=== PATIENT | female | born 2000 | race Caucasian/White ===

== ENCOUNTER 2025-02-24 06:06 | Inpatient (IN) ==
[2025-02-24] MEDS: PITOCIN ONE ×2 (06:10→16:23)
[2025-02-24] MEDS: D5 1/2 NS 1,000 ML 1,000 ML IV SCH ×2 (06:40→20:32)
[2025-02-24 06:56] LABS: INR 1.07 (0.8-1.3)
--- NOTE | 2025-02-24 07:03 | DR.OB ---
OB QUICK NOTE Assessment/Plan (1) induced hypertension: Assessment/Plan: L&D 02/24/25 at 6:50am S-No complaint. O-Afebrile,VSS B/P=160's/100's NUU=712 with good LTV, +accel, no decel. CTX=mild uterine irritability CVX=2cm/50%/-1/VTX AROM with light meconium. IUPC and FSE placed. A-IUP at 38 5/7 weeks for induction PIH P-Begin pitocin induction Amnio-infusion F/U preeclamptic labs Supplement potassium and magnesium as needed.
[2025-02-24] MEDS: NS 1,000 ML IV 1,000 ML IV SCH ×2 (07:15→15:37)
[2025-02-24] MEDS: OXYTOCIN 20 UNIT/1,000 ML-NS 20 UNIT/1,000 ML PLAST..BAG IV PRN (07:15)
[2025-02-24 07:22] LABS: LACTATE DEHYDROGENASE 275.0 Units/L (81-234)
[2025-02-24] MEDS ORDERED: CONSULT PHARMACY - POTASSIUM & MAGNESIUM XX SCH (09:00)
[2025-02-24] MEDS ORDERED: NS + KCL 20 MEQ/L 1,000 ML with MAGNESIUM SULFATE 50% INJ VIAL 1 G IV SCH (09:00)
[2025-02-24] MEDS: NORMODYNE INJ 20 MG VIAL ONE ×3 (09:38→16:50)
[2025-02-24] MEDS: NS 500 ML IV 500 ML IV ONE (09:40)
[2025-02-24] MEDS: MAGNESIUM SULFATE 40 GRAMS IV 40 G/1,000 ML BAG IV ONE (09:40)
[2025-02-24] MEDS: NUBAIN INJ 10 MG AMP IVP PRN (09:50)
[2025-02-24] MEDS ORDERED: NUBAIN INJ 10 MG AMP ONE ×3 (09:51→15:09)
[2025-02-24] MEDS: NORMODYNE INJ 100 MG VIAL IVP ONE (10:54)
[2025-02-24] MEDS: D5 1/2 NS 1,000 ML 1,000 ML IV ONE (10:56)
--- NOTE | 2025-02-24 11:56 | DR.OB ---
OB QUICK NOTE Assessment/Plan (1) induced hypertension: Assessment/Plan: L&D 02/24/25 at 11:35am Pitocin=18mu/min. MgSO4 at 2gm/hr. S-No complaint except CTX. Preeclamptic labs stable, but worsening B/P requiring IV Labetalol. Declines epidural at this time. O-Afebrile, VSS B/P earlier 174/111, now 140-160/90-100 LWB=561 with good LTV, +accel, no decel, occasional mild variable CTX=q 1 1/2 to 2 min., about 45-65mmHg CVX=4-5cm/80%/-1/VTX A-IUP at 39 5/7 weeks for induction Preeclampsia P-Continue pitocin induction Continue MgSO4 2gm/hr. Place Gilman catheter to monitor urine output. F/U serial preeclamptic labs and Mg levels Anticipate
[2025-02-24] MEDS: LR 1,000 ML IV 1,000 ML IV ONE ×3 (13:45→17:11)
[2025-02-24] MEDS: XYLOCAINE 1 % (PLAIN) ONE (14:45)
[2025-02-24] MEDS: FENTANYL VIAL INJ 100 mcg ONE ×2 (14:45→15:59)
[2025-02-24] MEDS: NAROPIN EPIDURAL 0.2% 100 ML ONE (14:51)
[2025-02-24] MEDS: NS 100 ML IV 100 ML ONE (15:48)
[2025-02-24] MEDS: OFIRMEV IV 1000 MG VIAL 1,000 MG/100 ML VIAL IV ONE (15:57)
[2025-02-24] MEDS: AMIDATE INJ 40 MG VIAL ONE (15:57)
[2025-02-24] MEDS: QUELICIN (OR ANECTINE) ONE (15:58)
[2025-02-24] MEDS: DECADRON INJ ONE (15:58)
[2025-02-24] MEDS: ZOFRAN INJ 4 MG VIAL ONE ×2 (15:58→17:58)
[2025-02-24] MEDS: ZEMURON 100 MG VIAL ONE (15:58)
[2025-02-24] MEDS: PEPCID 20 MG VIAL ONE (16:03)
[2025-02-24] MEDS: ANCEF VIAL 1 GRAM ONE (16:03)
[2025-02-24] MEDS: BICITRA 30 ML PO ONE (16:04)
[2025-02-24] MEDS: PEPCID 20 MG VIAL IVP PRN (16:20)
[2025-02-24] MEDS: DANTRIUM IV PRN (16:20)
[2025-02-24] MEDS: EPHEDRINE SULFATE INJ ONE (16:21)
[2025-02-24] MEDS: LR 1,000 ML IV 1,500 ML IV PRN (16:30)
[2025-02-24] MEDS ORDERED: MAGNESIUM SULFATE 50% INJ VIAL IVP PRN (16:33)
[2025-02-24] MEDS: ANCEF VIAL 1 GRAM IV PRN (16:33)
[2025-02-24] MEDS ORDERED: ULTANE GAS IN ONE (16:33)
[2025-02-24] MEDS ORDERED: KETAMINE HCL ONE (16:33)
[2025-02-24] MEDS ORDERED: XYLOCAINE 2 % (PLAIN) ONE (16:33)
[2025-02-24 16:36] LABS: INR 1.10 (0.8-1.3)
[2025-02-24 16:42] LABS: LACTATE DEHYDROGENASE 281.0 Units/L (81-234)
[2025-02-24] MEDS: AMIDATE INJ 40 MG VIAL IVP PRN (16:42)
[2025-02-24] MEDS: DIPRIVAN VIAL 20 ML IVP PRN (16:42)
[2025-02-24] MEDS: XYLOCAINE 2 % (PLAIN) IJ PRN (16:42)
[2025-02-24] MEDS: KETAMINE HCL IV PRN (16:42)
[2025-02-24] MEDS: QUELICIN (OR ANECTINE) IVP PRN (16:42)
[2025-02-24] MEDS: NORMODYNE INJ 20 MG VIAL IVP PRN (16:48)
[2025-02-24] MEDS: ZEMURON 100 MG VIAL IVP PRN (16:49)
[2025-02-24] MEDS: DECADRON INJ IVP PRN (16:49)
[2025-02-24] MEDS: OFIRMEV IV 1000 MG VIAL 1,000 MG/100 ML VIAL IV PRN (16:50)
[2025-02-24] MEDS: PRECEDEX INJ VIAL IVP PRN (16:52)
[2025-02-24] MEDS: FENTANYL VIAL INJ 100 mcg IVP PRN (16:53)
[2025-02-24] MEDS: TORADOL 30 MG VIAL ONE (17:02)
[2025-02-24] MEDS: TORADOL 30 MG VIAL IVP PRN (17:02)
[2025-02-24] MEDS: DILAUDID INJ ONE (17:05)
[2025-02-24] MEDS ORDERED: PITOCIN IVP PRN (17:21)
[2025-02-24] MEDS: BRIDION ONE (17:24)
[2025-02-24] MEDS: BETADINE SOLN ONE (17:26)
[2025-02-24] MEDS: PITOCIN IVP ONE (17:28)
[2025-02-24] MEDS: EPHEDRINE SULFATE INJ IVP PRN (17:34)
[2025-02-24] MEDS ORDERED: DILAUDID INJ IVP PRN ×2 (17:35→19:10)
[2025-02-24] MEDS ORDERED: ZOFRAN INJ 4 MG VIAL IVP PRN ×2 (17:35→19:10)
[2025-02-24] MEDS: BRIDION IVP PRN (17:42)
[2025-02-24] MEDS: DILAUDID INJ IVP PRN (17:47)
[2025-02-24] MEDS ORDERED: BENADRYL INJ 50 MG VIAL IVP PRN ×2 (18:00→19:10)
[2025-02-24] MEDS: ZOFRAN INJ 4 MG VIAL IVP PRN ×2 (18:03→19:36)
[2025-02-24] MEDS: METHERGINE ONE (18:25)
--- NOTE | 2025-02-24 18:38 | DR.OB ---
OB QUICK NOTE Assessment/Plan (1) induced hypertension: Assessment/Plan: L&D 02/24/25 at 4:30pm (late entry) Pitocin off, MgSO4 2gm/hr. S-No complaint except CTX. Patient noted to have severe variables with some late component. O-Afebrile, VSS (B/D=161-452 / 80-110) PVF=754 with minimal LTV, no accel, severe variables with late component. CTX=q 1 1/2 to 2 min., about 50-65mmHg CVX=6cm/50%/-1/VTX Caput note, CVX swelling. A-IUP at 38 5/7 weeks with preeclampsia Failure to dilate Non-reassuring FHT distant from delivery P-To C/S
[2025-02-24] MEDS ORDERED: PERCOCET TAB 5/325 MG PO PRN (19:10)
[2025-02-24] MEDS ORDERED: REGLAN INJ 10 MG VIAL IVP PRN (19:10)
[2025-02-24] MEDS ORDERED: MYLICON TAB 80 MG CHEW PO PRN (19:10)
[2025-02-24] MEDS: K-DUR TAB 20 MEQ PO SCH (21:46)
[2025-02-24] MEDS: OXYTOCIN 20 UNIT/1,000 ML-NS 20 UNIT/1,000 ML PLAST..BAG IV SCH (21:52)
[2025-02-24] MEDS: TORADOL 30 MG VIAL IVP SCH (22:18)
[2025-02-24] MEDS: REGLAN INJ 10 MG VIAL IVP PRN (22:19)
[2025-02-24 22:37] LABS: INR 1.16 (0.8-1.3)
[2025-02-24 22:48] LABS: COR NA(FOR HYPERGLY) 141 mmol/L (136-145); CREATININE 0.83 mg/dL (0.55-1.02); LACTATE DEHYDROGENASE 319 Units/L (81-234); eGFR NON BLACK RACES > 60 (>60)
[2025-02-24 23:10] LABS: MEAN PLATELET VOLUME 9.8 fL (7.4-11.0); RED CELL DISTRIBUTION WIDTH 16.5 % (11.6-16.5)
[2025-02-24 23:14] LABS: BAND NEUTROPHILS % 5 % (0-10); METAMYELOCYTES % 2; MYELOCYTES % 1; PLATELET MORPHOLOGY COMMENT NORMAL (NORMAL)
[2025-02-25] MEDS: NS 500 ML IV 500 ML IV PRN (02:11)
[2025-02-25] MEDS: OFIRMEV IV 1000 MG VIAL 1,000 MG/100 ML VIAL IV SCH (02:12)
[2025-02-25] MEDS ORDERED: ADACEL or BOOSTRIX TDaP VACCINE IM ONE (03:56)
[2025-02-25] MEDS: ADACEL or BOOSTRIX TDaP VACCINE IM ONE (04:21)
[2025-02-25 05:17] LABS: COR CA(FOR HYPOALB) 8.9 mg/dL (8.5-10.1); COR NA(FOR HYPERGLY) 137 mmol/L (136-145); CREATININE 0.81 mg/dL (0.55-1.02); eGFR NON BLACK RACES > 60 (>60)
[2025-02-25 05:27] LABS: INR 1.20 (0.8-1.3)
[2025-02-25] MEDS: MAGNESIUM SULFATE 40 GRAMS IV 40 G/1,000 ML BAG IV PRN (05:29)
[2025-02-25 05:40] LABS: MEAN PLATELET VOLUME 9.4 fL (7.4-11.0); RED CELL DISTRIBUTION WIDTH 16.2 % (11.6-16.5)
[2025-02-25] MEDS ORDERED: NS 500 ML IV 500 ML IV ONE (08:14)
[2025-02-25] MEDS ORDERED: ZOLOFT ONE (08:14)
[2025-02-25] MEDS: CONSULT PHARMACY - POTASSIUM & MAGNESIUM XX SCH (08:17)
[2025-02-25] MEDS: COLACE CAP 100 MG PO SCH (08:20)
[2025-02-25] MEDS: ZOLOFT PO SCH (08:20)
[2025-02-25] MEDS: MOTRIN TAB 800 MG PO PRN (08:20)
[2025-02-25] MEDS: PRENATAL PLUS PO SCH (08:20)
[2025-02-25] MEDS: PROTONIX TAB 40 MG PO SCH (08:20)
[2025-02-25] MEDS: POTASSIUM CHLORIDE LIQ PO SCH (08:25)
[2025-02-25] MEDS ORDERED: ZOLOFT PO SCH (09:00)
[2025-02-25] MEDS: K-DUR TAB 20 MEQ PO SCH (10:48)
[2025-02-25] MEDS ORDERED: KLOR-CON 10 MEQ TAB PO NR (11:00)
[2025-02-25] MEDS: BACTROBAN TOPICAL OINT TOP SCH (13:13)
[2025-02-25] MEDS: FERROUS GLUCONATE PO SCH (16:37)
[2025-02-25 18:40] LABS: INR 1.05 (0.8-1.3)
[2025-02-25 18:41] LABS: MEAN PLATELET VOLUME 9.0 fL (7.4-11.0); RED CELL DISTRIBUTION WIDTH 17.3 % (11.6-16.5)
[2025-02-25 18:52] LABS: COR CA(FOR HYPOALB) 8.9 mg/dL (8.5-10.1); CREATININE 0.94 mg/dL (0.55-1.02); eGFR NON BLACK RACES > 60 (>60)
[2025-02-26 04:18] VITALS: BP 140/81; TEMP 97.8
[2025-02-26 05:30] LABS: MEAN PLATELET VOLUME 9.1 fL (7.4-11.0); RED CELL DISTRIBUTION WIDTH 17.1 % (11.6-16.5)
[2025-02-26 05:32] LABS: INR 1.00 (0.8-1.3)
[2025-02-26 05:42] LABS: COR CA(FOR HYPOALB) 9.3 mg/dL (8.5-10.1); CREATININE 0.98 mg/dL (0.55-1.02); eGFR NON BLACK RACES > 60 (>60)
[2025-02-26 09:42] VITALS: PULSE 99; O2SAT 100
[2025-02-26] MEDS ORDERED: ZOLOFT ONE (10:30)
[2025-02-26 11:30] VITALS: RESP 18
== END 2025-02-26 12:50 | disposition home or self-care (01) | DRG 788 ==
LOC: LD 06:06 → ICU 18:05 → MED/SURG 02-25 12:40
PROVIDERS: ADMIT Specialist; ATTEND Specialist
DX: O62.0 Primary inadequate contractions; E87.6 Hypokalemia; Z65.8 Other specified problems related to psychosocial circumstances; Z3A.38 38 weeks gestation of pregnancy; F41.8 Other specified anxiety disorders; Z37.0 Single live birth; O14.14 Severe pre-eclampsia complicating childbirth; O99.343 Other mental disorders complicating pregnancy, third trimester; O99.013 Anemia complicating pregnancy, third trimester; D50.8 Other iron deficiency anemias